=== PATIENT | female | born 1960 | race Caucasian/White ===

== ENCOUNTER → 2018-03-12 | Outpatient (CLI) | payer OTHER ==
[2014-04-30 01:52] VITALS: BP 149/96
== END ==
LOC: MAMMO 11:03
DX: Z12.31 Encounter for screening mammogram for malignant neoplasm of breast (principal)

== ENCOUNTER 2020-02-13 08:32 | Emergency (ER) | payer OTHER ==
[~2020-02-13] VITALS: Ht 167.6 cm; Wt 77.1 kg
[2020-02-13 09:15] LABS: EOS # 0.2 (0.04-0.40); EOS % 3.8 % (1.0-5.0); HEMATOCRIT 46.2 % (37.0-47.0); LYMPH# 1.2 (1.50-4.00); MEAN CELL VOLUME 94 fl (78-100); MEAN CORPUSCULAR HEMOGLOBIN 30 pg (27-31); MEAN CORPUSCULAR HGB CONC 33 g/dL (33-37); MEAN PLATELET VOLUME 11.1 fl (7.4-10.4); MONO # 0.4 (0.20-0.80); NEU # 2.2 (1.40-6.50); PLATELET COUNT 249 K/mm3 (130-400); RED BLOOD COUNT 4.94 M/mm3 (4.10-5.30); RED CELL DISTRIBUTION WIDTH 12.5 % (11.5-14.5)
[2020-02-13 09:24] LABS: ALBUMIN 4.8 g/dL (3.5-5.0); POTASSIUM 4.2 mmol/L (3.5-5.1)
[2020-02-13 09:26] LABS: CALCIUM 10.1 mg/dL (8.3-10.5)
[2020-02-13 09:27] LABS: GLUCOSE 106 mg/dL (65-105)
[2020-02-13 09:29] LABS: TOTAL BILIRUBIN 0.3 mg/dL (0.2-1.2)
[2020-02-13 09:32] LABS: AST-SGOT 31 U/L (5-34); SODIUM 140 mmol/L (136-145)
[2020-02-13 09:35] LABS: TOTAL PROTEIN 8.1 g/dL (6.4-8.3)
[2020-02-13 09:36] LABS: CARBON DIOXIDE 25 mmol/L (22-29)
[2020-02-13 09:41] LABS: ALT/SGPT 32 U/L (0-55)
[2020-02-13 09:48] LABS: PARTIAL THROMBOPLASTIN TIME 28.4 SECONDS (21.0-32.0); PROTHROMBIN TIME 9.5 SECONDS (9.0-12.0)
[2020-02-13 09:51] LABS: TROPONIN-I < 0.03 ng/mL (<0.030)
[2020-02-13] MEDS ORDERED: AZITHROMYCIN 250MGPK PO (11:27)
[2020-02-13 12:04] VITALS: BP 113/81
== END 2020-02-13 11:50 | disposition home or self-care (01) ==
LOC: ED 08:32
PROVIDERS: Nurse Practitioner
DX: R05 Cough (principal); R07.89 Other chest pain; I10 Essential (primary) hypertension

== ENCOUNTER → 2021-03-16 | Outpatient (CLI) | payer OTHER ==
[~2021-03-16] MED LIST: AZITHROMYCIN 250MGPK PO
== END ==
LOC: MAMMO 12:44
DX: Z12.31 Encounter for screening mammogram for malignant neoplasm of breast (principal); N64.89 Other specified disorders of breast